=== PATIENT | male | born 1970 | race Caucasian/White ===

== ENCOUNTER → 2021-06-03 | Outpatient (REF) ==
--- NOTE | 2021-06-03 12:25 | REP ---
INDICATION: HIP AND BACK PAIN COMPARISON: None. TECHNIQUE: AP, lateral, coned-down views of the lumbar spine. FINDINGS: Straightening of normal lordosis is nonspecific. Endplate sclerosis, facet hypertrophy and disc space narrowing is most pronounced at the L5-S1 level and to a lesser extent L4-5. No acute fracture/compression injury or subluxation. IMPRESSION: 1. No acute fracture / compression injury or subluxation. 2. Moderate degenerative spondylosis at L5-S1 and L4-5. <Electronically signed by Florentino Minor > 06/03/21 [id number]
--- NOTE | 2021-06-03 12:27 | REP ---
INDICATION: HIP AND BACK PAIN COMPARISON: None. TECHNIQUE: Frontal view of the pelvis with neutral and frog lateral views of the right and left hip. FINDINGS: Very mild and likely age-related increased sclerosis to the acetabular roof with minimal joint space narrowing noted bilaterally (left greater than right). Remainder of the osseous structures and joint spaces are intact and age-appropriate. There is no evidence for acute fracture or dislocation. IMPRESSION: Mild age-related degenerative changes to the bilateral hips suggested. <Electronically signed by Florentino Minor > 06/03/21 [id number]
== END ==
LOC: M PLAIMG 11:26
PROVIDERS: ATTEND Internal Medicine
DX: M47.817 Spondylosis without myelopathy or radiculopathy, lumbosacral region (principal); M47.816 Spondylosis without myelopathy or radiculopathy, lumbar region; M54.5 Low back pain; M25.551 Pain in right hip; M25.552 Pain in left hip

== ENCOUNTER → 2024-08-09 | Outpatient (REF) | LOC: M PLAIMG 13:57 | PROVIDERS: ATTEND Internal Medicine | DX: M54.50 Low back pain, unspecified (principal); M47.816 Spondylosis without myelopathy or radiculopathy, lumbar region; M47.817 Spondylosis without myelopathy or radiculopathy, lumbosacral region; M51.370 Other intervertebral disc degeneration, lumbosacral region with discogenic back pain only; M47.812 Spondylosis without myelopathy or radiculopathy, cervical region ==